=== PATIENT | male | born 1955 | race African-American/Black ===

== ENCOUNTER 2022-02-27 09:42 | Outpatient (CLI) | payer OTHER | END 2022-02-27 09:43 | disposition home or self-care (01) | LOC: CSHLAB 09:42 | PROVIDERS: ATTEND Internal Medicine | DX: Z20.822 Contact with and (suspected) exposure to COVID-19 (principal) | CPT/HCPCS: 87811 ==

== ENCOUNTER 2022-03-05 12:47 | Outpatient (CLI) | payer OTHER | END 2022-03-05 12:48 | disposition home or self-care (01) | LOC: CSHRAD 12:47 | PROVIDERS: ATTEND Internal Medicine | DX: Z12.2 Encounter for screening for malignant neoplasm of respiratory organs (principal); J44.9 Chronic obstructive pulmonary disease, unspecified; F17.210 Nicotine dependence, cigarettes, uncomplicated; R91.8 Other nonspecific abnormal finding of lung field | CPT/HCPCS: 71271 ==

== ENCOUNTER 2022-07-18 12:20 | Outpatient (CLI) | payer OTHER | END 2022-07-18 12:21 | disposition home or self-care (01) | LOC: CSHCT 12:20 | PROVIDERS: ATTEND Internal Medicine | DX: R91.1 Solitary pulmonary nodule (principal); R91.8 Other nonspecific abnormal finding of lung field | CPT/HCPCS: 71250 ==